=== PATIENT | male | born 1985 | race Caucasian/White ===

== ENCOUNTER 2025-04-04 20:25 | Emergency (ER) | payer OTHER, SELFPAY ==
[2025-04-04 20:29] VITALS: BP 149/92
--- NOTE | 2025-04-04 21:53 | ED.SKININJ ---
HPI-Injury
General
Chief Complaint: Skin Problem
Source: patient
Exam Limitations: none
Time Seen by Provider: 04/04/25 21:03
Nursing documentation reviewed up to this point in time: agreed with
History of Present Illness-Injury
Initial Injury comments:
39-year-old male presents with a paronychia on the right ring finger. He states it started to get red 1 week ago and has gotten progressively worse. He does bite his nails.
Past History
Past History
ED Past Medical History: None
ED Past Surgical History: None
Social History
Tobacco: Non-smoker
Alcohol: Occasional
Living: with family
Employment: Employed
Review of Systems
Review of Systems
Allergies reviewed?: Yes
All Other Systems: ROS reviewed and negative except as documented in HPI and ROS
Phy Exam
Physical Exam
Physical Exam:
GENERAL: No acute distress. A&Ox3.
CONSTITUTIONAL: Afebrile.
RESPIRATORY: Regular respirations, nonlabored, lungs clear.
CARDIOVASCULAR: Regular rate and rhythm, no murmurs, no rubs.
MUSCULOSKELETAL: Moves with ease. Well perfused.
SKIN: Warm, dry, pink, dorsal aspect of right ring finger is red and swollen from DIP joint to the base of the nail. Fluctuant. Distal neurovascular intact.
PSYCH: Normal mood and affect. Well kept, interactive and appropriate
NEUROLOGIC: Awake, alert and oriented. No focal neurological deficits
Course
Orders/Labs/Results
Orders:
Orders
04/04/25 22:01
Amoxicillin 875 mg/Clav 125 mg [Augmentin 875 mg/125 mg] 1 tablet PO NOW STA
Vital Signs
Initial and Last Documented VS:
Initial Vital Signs
Temp Pulse Resp BP Pulse Ox
98.3 F 82 20 149/92 96
04/04/25 20:29 04/04/25 20:29 04/04/25 20:29 04/04/25 20:29 04/04/25 20:29
Last Documented Vital Signs
Temp Pulse Resp BP Pulse Ox
98.3 F 82 18 153/84 100
04/04/25 20:29 04/04/25 20:29 04/04/25 22:17 04/04/25 22:17 04/04/25 22:17
MDM/Problems Addressed
Differential Diagnosis Includes:
Paronychia, cellulitis
MDM/Problems Addressed:
39-year-old male presents with a paronychia on the right ring finger. He states it started to get red 1 week ago and has gotten progressively worse. He does bite his nails.
Digital block then punctured the area in 2 separate places and no pus drainage, only blood.
Finger soaked in warm hydrogen peroxide solution. Antibiotic ointment and Band-Aid applied
Will start on antibiotics.
Shortly after procedure, patient had vasovagal episode, became pale and sweaty, given orange juice and a cold compress and improved.
Patient feeling much better after orange juice and cold compress
Prescription for Keflex sent to his pharmacy first dose given here.
Out of bed and ambulating well
Stable for discharge
*Pulse Oximetry
SaO2: 96
Oxygen Mode of Delivery: Room air
Patient hypoxic: not evaluated
*Critical Care Note
Total Time (30-74mins, 75-104mins- exclusive of procedures): Not Applicable
ED Attending Note
-
Portions of this chart may have been created with voice recognition software.� Occasional wrong word or��sound alike� substitutions may have occurred due to the inherent limitations of voice recognition software.
Discharge Plan
Departure
Patient Disposition: Home (Routine Discharge)
Date of Disposition: 04/04/25
Time of Disposition: 22:03
Patient with high blood pressure during this ER visit?: No
Condition: Good
Discharge Problem:
Cellulitis of finger, Paronychia
Instructions: Cellulitis (skin infection) in adults - ED (DC), Paronychia - ED (DC)
Prescriptions:
New
amoxicillin-pot clavulanate 875-125 mg tablet
1 tab PO BID Qty: 13 0RF
No Action
benzonatate 200 mg capsule
200 mg PO TID PRN (Reason: cough) Qty: 10 0RF
Referrals:
UNKNOWN - PT DOES,NOT KNOW [Family Provider]
Activity Restrictions/Additional Instructions:
As we discussed, you had a vasovagal episode
Wash the area daily with soap and water, apply antibiotic ointment and Band-Aid and use the aluminum fingertip splint as needed for protection.
I sent a prescription to your pharmacy for the antibiotic Augmentin to take twice daily for 7 days.
See your doctor or return here if the area gets worse
Interventions
Interventions:
*Risk Screen - Suicide Last Done: 04/04/25 20:26
*General Assessment Last Done: 04/04/25 20:26
*Neglect/Abuse Screening Last Done: 04/04/25 20:26
*ED- Fall Risk Assessment Last Done: 04/04/25 20:26
*ED COVID-19 Vaccine History Last Done: 04/04/25 20:26
*ED Influenza Vaccine History Last Done: 04/04/25 20:26
*Nursing Disposition Last Done: 04/04/25 22:25
ED-Skin Assessment Last Done: 04/04/25 22:12
Discharge Date and Time
Discharge Date/Time: 04/04/25 22:26
Print Language: IVORIAN
[2025-04-04] MEDS: AUGMENTIN 875 MG/125 MG 1 TABLET PO (22:07)
[2025-04-04 22:17] VITALS: BP 153/84
== END 2025-04-04 22:26 | disposition home or self-care (01) ==
LOC: EMR 20:25
PROVIDERS: EMERGENCY PHYSICIAN Emergency Medicine
DX: L03.011 Cellulitis of right finger (principal)
CPT/HCPCS: 99283; 10160